=== PATIENT | male | born 1975 | race Caucasian/White ===

== ENCOUNTER 2018-02-13 19:10 | Emergency (ER) | payer SELFPAY ==
[~2018-02-13] VITALS: Ht 190.5 cm; Wt 95.5 kg
[~2018-02-13 19:10] MED LIST: AMOXICILLIN; AUGMENTIN; AUGMENTIN 875 M1 TAB PO; BLOOD PRESSURE MED; CELEXA40 MG PO; CEPHALEXIN500 M1 PO; CLINDAMYCIN HC300 MG PO; CRESTOR; DIOVAN; ESCITALOPRAM; KLONOPIN 0.5MG0.5 MG PO; NORCO 325 MG-7.1 TAB PO; PRAVACHOL 40MG40 MG PO; SEROQUEL XR400 M1 PO; SEROQUEL400 MG PO
[2018-02-13 19:13] VITALS: TEMP 100
[2018-02-13 21:07] VITALS: BP 119/83; PULSE 95
== END 2018-02-13 21:07 | disposition home or self-care (01) ==
LOC: COL.ER 19:10
DX: S06.0X0A Concussion without loss of consciousness, initial encounter (principal); W08.XXXA Fall from other furniture, initial encounter; Y92.59 Other trade areas as the place of occurrence of the external cause

== ENCOUNTER 2018-03-13 13:39 | Inpatient (IN) | payer SELFPAY ==
[~2018-03-13] VITALS: Ht 180.3 cm; Wt 90.4 kg
[2018-03-13] MEDS ORDERED: SEROQUEL XR200 MG PO (13:50)
[2018-03-13 14:04] LABS: HEMOGLOBIN 10.9 g/dl (13.5-18.0); MEAN CELL VOLUME 83 fl (80.0-100.0); MEAN CORPUSCULAR HEMOGLOBIN 30 pg (27.0-31.0); MEAN CORPUSCULAR HGB CONC 36 g/dl (33.0-37.0); MEAN PLATELET VOLUME 9.7 fl (7.4-10.4); PLATELET COUNT 131 K/mm3 (130-400); REDCELL DISTRIBUTION WIDTH-CV 12.7 % (11.5-14.5)
[2018-03-13 14:08] LABS: HEMATOCRIT 30.6 % (42.0-52.0)
[2018-03-13 14:24] LABS: ALBUMIN 3.2 gm/dL (3.5-5.0); BILIRUBIN,TOTAL 0.4 mg/dL (0.0-1.0); CALCIUM 8.2 mg/dL (8.4-10.2); CREATININE, serum 1.73 mg/dL (0.66-1.25); TOTAL PROTEIN 6.3 gm/dL (6.4-8.2)
[2018-03-13 14:25] LABS: POTASSIUM 2.8 mmol/L (3.4-5.0)
[2018-03-13 14:27] LABS: BAND 31 % (0-10); LYMPHOCYTE 5 % (20.0-51.0); NEUTROPHILS 57 % (42.0-75.2); PLATELET ESTIMATE NORMAL (NORMAL)
[2018-03-13 16:47] LABS: MAGNESIUM 1.9 mg/dL (1.6-2.3)
[2018-03-13 19:20] VITALS: BP 97/65; PULSE 82; TEMP 99.3
[2018-03-13 19:45] LABS: COLLECTION METHOD CLEAN CATCH
[2018-03-13 20:06] LABS: MUCOUS Present /lpf; PH 6 (5-8); SQUAMOUS EPITHELIAL 0-2 /hpf; URINE APPEARANCE Clear; URINE BACTERIA Rare /hpf; URINE BILIRUBIN Negative (NEGATIVE); URINE BLOOD 2+ (NEGATIVE); URINE COLOR Yellow; URINE GLUCOSE Negative (NEGATIVE); URINE KETONE Negative (NEGATIVE); URINE LEUKOCYTE ESTERASE Negative (NEGATIVE); URINE NITRATE Negative (NEGATIVE); URINE PROTEIN(semi-quant) 2+ (NEGATIVE); URINE UROBILINOGEN Negative (NEGATIVE)
[2018-03-13 20:14] LABS: TRICYCLIC ANTIDEPRESS URINE POSITIVE
[2018-03-13 20:29] LABS: CREATININE, serum 1.39 mg/dL (0.66-1.25); SODIUM 132 mmol/L (137-145)
[2018-03-13 23:57] VITALS: BP 102/55; PULSE 92; TEMP 100.5
[2018-03-14 03:36] LABS: HEMOGLOBIN 10.1 g/dl (13.5-18.0); MEAN CELL VOLUME 86 fl (80.0-100.0); MEAN CORPUSCULAR HEMOGLOBIN 30 pg (27.0-31.0); MEAN CORPUSCULAR HGB CONC 34 g/dl (33.0-37.0); MEAN PLATELET VOLUME 9.6 fl (7.4-10.4); PLATELET COUNT 119 K/mm3 (130-400); RED BLOOD COUNT 3.41 M/mm3 (4.20-5.60); REDCELL DISTRIBUTION WIDTH-CV 13.1 % (11.5-14.5)
[2018-03-14 03:38] LABS: HEMATOCRIT 29.4 % (42.0-52.0)
[2018-03-14 03:49] LABS: ALBUMIN 2.7 gm/dL (3.5-5.0); BILIRUBIN,TOTAL 0.3 mg/dL (0.0-1.0); CALCIUM 7.7 mg/dL (8.4-10.2); CREATININE, serum 1.2 mg/dL (0.66-1.25); POTASSIUM 3.2 mmol/L (3.4-5.0); TOTAL PROTEIN 5.8 gm/dL (6.4-8.2)
[2018-03-14 03:57] VITALS: BP 107/73; PULSE 86; TEMP 99.1
[2018-03-14 04:02] LABS: BAND 13 % (0-10); LYMPHOCYTE 2 % (20.0-51.0); NEUTROPHILS 77 % (42.0-75.2)
[2018-03-14 04:03] LABS: BURR CELLS 1+; PLATELET ESTIMATE NORMAL (NORMAL); POIKILOCYTOSIS 1+
[2018-03-14 04:07] LABS: TROPONIN-I 6 HR POST INITIAL 0.078 ng/mL (0.000-0.034)
[2018-03-14 09:13] VITALS: BP 114/61; PULSE 79; TEMP 97.9
[2018-03-14 12:04] VITALS: BP 104/57; PULSE 90; TEMP 98.3
[2018-03-14 16:44] VITALS: BP 101/60; PULSE 95; TEMP 99.1
[2018-03-14 20:00] VITALS: BP 124/67; PULSE 92; TEMP 101.8
[2018-03-14 21:42] VITALS: TEMP 100
[2018-03-15] VITALS: BP 117/69; PULSE 84; TEMP 99.3
[2018-03-15 04:00] VITALS: BP 104/70; PULSE 72; TEMP 98.3
[2018-03-15 06:39] LABS: CALCIUM 7.8 mg/dL (8.4-10.2); CREATININE, serum 0.8 mg/dL (0.66-1.25); POTASSIUM 3.9 mmol/L (3.4-5.0)
[2018-03-15 07:15] VITALS: BP 108/70; PULSE 75; TEMP 97.9
[2018-03-15 11:12] VITALS: BP 117/66; PULSE 97; TEMP 97.9
[2018-03-15 15:33] VITALS: BP 108/64; PULSE 119; TEMP 97.7
[2018-03-15 19:53] VITALS: BP 109/64; PULSE 115; TEMP 98.9
[2018-03-15 20:32] LABS: HEMATOCRIT 21.7 % (42.0-52.0); HEMOGLOBIN 7.2 g/dl (13.5-18.0)
[2018-03-15 20:44] LABS: CALCIUM 7.7 mg/dL (8.4-10.2); CREATININE, serum 0.98 mg/dL (0.66-1.25); POTASSIUM 4.6 mmol/L (3.4-5.0)
[2018-03-16] VITALS (12 sets, daily range): BP systolic 102–130; BP diastolic 39–70; PULSE 103–125; TEMP 97.9–100.8
[2018-03-16 01:57] LABS: HEMATOCRIT 19.5 % (42.0-52.0); HEMOGLOBIN 6.7 g/dl (13.5-18.0)
[2018-03-16 06:15] LABS: MEAN CELL VOLUME 88 fl (80.0-100.0); MEAN CORPUSCULAR HGB CONC 34 g/dl (33.0-37.0); MEAN PLATELET VOLUME 10.2 fl (7.4-10.4); RED BLOOD COUNT 2.44 M/mm3 (4.20-5.60); REDCELL DISTRIBUTION WIDTH-CV 13.9 % (11.5-14.5)
[2018-03-16 06:24] LABS: HEMATOCRIT 21.4 % (42.0-52.0); HEMOGLOBIN 7.2 g/dl (13.5-18.0); MEAN CORPUSCULAR HEMOGLOBIN 30 pg (27.0-31.0)
[2018-03-16 06:25] LABS: PLATELET COUNT 255 K/mm3 (130-400)
[2018-03-16 06:35] LABS: CALCIUM 7.6 mg/dL (8.4-10.2); CREATININE, serum 0.95 mg/dL (0.66-1.25); POTASSIUM 4.4 mmol/L (3.4-5.0)
[2018-03-16 07:54] LABS: BAND 22 % (0-10); EOSINOPHIL 1 % (0-4); LYMPHOCYTE 7 % (20.0-51.0); NEUTROPHILS 67 % (42.0-75.2); PLATELET ESTIMATE NORMAL (NORMAL)
[2018-03-16 07:55] LABS: BURR CELLS 2+
[2018-03-16 08:18] LABS: RETIC # 0.02 M/mm3 (0.02-0.16); RETIC % 0.8 % (0.5-3.52)
[2018-03-16 08:19] LABS: IRON,SERUM 62 ug/dL (35-150)
[2018-03-16 08:28] LABS: TOTAL IRON BINDING CAPACITY 178 ug/dL (261-462)
[2018-03-16 08:54] LABS: FERRITIN 264 ng/mL (18-464)
[2018-03-16 12:34] LABS: HEMATOCRIT 21.5 % (42.0-52.0); HEMOGLOBIN 7.2 g/dl (13.5-18.0)
[2018-03-16 15:20] LABS: FOLATE (FOLIC ACID) 9.4 ng/mL (7.0-31.4)
[2018-03-17] VITALS (19 sets, daily range): BP systolic 92–119; BP diastolic 31–57; PULSE 98–125; TEMP 98.6–103.1
[2018-03-17 00:27] LABS: HEMATOCRIT 20.3 % (42.0-52.0); HEMOGLOBIN 6.9 g/dl (13.5-18.0)
[2018-03-17 06:58] LABS: MEAN CELL VOLUME 88 fl (80.0-100.0); MEAN CORPUSCULAR HGB CONC 34 g/dl (33.0-37.0); MEAN PLATELET VOLUME 10.2 fl (7.4-10.4); PLATELET COUNT 180 K/mm3 (130-400); RED BLOOD COUNT 2.22 M/mm3 (4.20-5.60); REDCELL DISTRIBUTION WIDTH-CV 14.6 % (11.5-14.5)
[2018-03-17 07:05] LABS: HEMATOCRIT 19.6 % (42.0-52.0); HEMOGLOBIN 6.7 g/dl (13.5-18.0); MEAN CORPUSCULAR HEMOGLOBIN 30 pg (27.0-31.0)
[2018-03-17 07:12] LABS: CALCIUM 7.1 mg/dL (8.4-10.2); CREATININE, serum 1.42 mg/dL (0.66-1.25); POTASSIUM 3.5 mmol/L (3.4-5.0)
== END 2018-03-17 13:05 | disposition short-term general hospital (02) | DRG 871 ==
LOC: COL.ER 13:39 → MEDICAL 17:13
PROVIDERS: Emergency Medicine; Hospitalist; Internal Medicine; Nurse Practitioner Family
PROC: 02HV33Z Insertion of Infusion Device into Superior Vena Cava, Percutaneous Approach (ICD-10-PCS; principal; 2018-03-17)
DX: A41.01 Sepsis due to Methicillin susceptible Staphylococcus aureus (principal); I63.443 Cerebral infarction due to embolism of bilateral cerebellar arteries; I33.0 Acute and subacute infective endocarditis; N39.0 Urinary tract infection, site not specified; N17.9 Acute kidney failure, unspecified; E87.1 Hypo-osmolality and hyponatremia; G81.91 Hemiplegia, unspecified affecting right dominant side; I76 Septic arterial embolism; K92.1 Melena; D62 Acute posthemorrhagic anemia; E87.0 Hyperosmolality and hypernatremia; Z23 Encounter for immunization; Z86.718 Personal history of other venous thrombosis and embolism; I10 Essential (primary) hypertension; E87.6 Hypokalemia; R47.81 Slurred speech; T79.6XXA Traumatic ischemia of muscle, initial encounter; W18.30XA Fall on same level, unspecified, initial encounter
CPT/HCPCS: OP; 99223-AI; 99233-AI; 99239; A9585; C1751; C1894; C9113; J0295; J0456; J0696; J1644; J2405; J3480; J7030; J7050; P9016